=== PATIENT | female | born 1980 | race Caucasian/White ===

== ENCOUNTER → 2018-01-19 | Emergency (ER) | payer OTHER ==
[2018-01-19 11:47] VITALS: BMI 33.1
--- NOTE | 2018-01-19 14:05 | OBHP ---
Datetime: 01/19/2018 13:59 IP Adm Impression: , intrauterine IP Chief Complaint Other: back pain and dizziness IP Admit Plan: Observation/Evaluation; Discharge home Admit Comment, IP Provider: Patient is a @ 32.4 wks as per patient. Patient received all pre danna care in [facility]. Patient reports on/off dizziness and back pain. No dysuria, no fever, no vagi nal bleeding, no leaking, no other sick signs/symptoms, no contractions, +FM. Previous x 2, no m edical problems, previous Gallbladder surgery, no allergies, no medications taking except vi tamins. On exam, back pain relieved with massage - looks to be musculoskeletal. Pt reports no dizzine ss now, vitals normal. FHR = 150 Cat 1. Patient to go to clinic to sign up for care. Otherwise no sig ns of chorio or labor. Labor precautions given, discharged home Pelvic Type - PN: Adequate Extremities - PN: Normal Abdomen - PN: Normal Back - PN: Normal Breast - PN: Normal Lungs - PN: Normal Heart - PN: Normal Thyroid - PN: Normal Neurologic - PN: Normal HEENT - PN: Normal General - PN: Normal FHR - Baseline A Provider: 150 EGA AdmitDate IP: 32.4 Vital Signs Provider: Reviewed IP Chief Complaint: Other NICHD Accel Fetus A IP Provider: [id number] NICHD Decel Fetus A IP Provider: None Genitourinary Exam: Normal DTRs - PN: Normal
--- NOTE | 2018-01-19 14:08 | OBDCSUM ---
Datetime: 01/19/2018 13:01 Discharged to, Provider: Home Follow up at, Provider: SHER Prasad Instr Activity: Normal activity Disch Instr Diet: Regular Discharge Instructions, Provider: Routine instructions given Discharge Time: 01/19/2018 13:01 Follow up in weeks, Provider: rashmi kincaid today Disch Referrals: None Contraception discussed, Prov: Yes Discharge Diagnosis Prov Other: Back pain/dizziness
[2018-01-20 00:35] VITALS: BP 128/75; PULSE 79; RESP 17; TEMP 98.2; O2SAT 99
== END | disposition home or self-care (01) ==
LOC: H.EROB2 11:19
DX: O26.93 Pregnancy related conditions, unspecified, third trimester (principal); Z3A.32 32 weeks gestation of pregnancy; M54.9 Dorsalgia, unspecified; R42 Dizziness and giddiness

== ENCOUNTER 2018-03-27 14:47 | Emergency (ER) | payer OTHER ==
[2018-03-27 14:47] VITALS: BMI 33.1
[2018-03-27 14:55] VITALS: TEMP 98.2; O2SAT 100
[2018-03-27 17:34] LABS: SQUAMOUS EPITHIAL < 1 /hpf (0-5); URINE BACTERIA FEW (<OCC); URINE BILIRUBIN NEGATIVE (NEGATIVE); URINE BLOOD MODERATE (NEGATIVE); URINE CLARITY CLEAR (Clear); URINE COLOR STRAW (YELLOW); URINE GLUCOSE (UA) NEG (Normal); URINE LEUKOCYTE ESTERASE MOD Leu/uL (Negative); URINE PROTEIN NEGATIVE (NEGATIVE); URINE UROBILINOGEN 0.2-1.0 mg/dL (0.2-1.0)
--- NOTE | 2018-03-27 18:02 | ED PDOC ---
HPI: Allergic Reaction Time Seen by Provider: 03/27/18 15:40 Chief Complaint (Nursing): Abnormal Skin Integrity History Per: Patient History/Exam Limitations: no limitations Onset/Duration Of Symptoms: Days Current Symptoms Are (Timing): Still Present Possible Cause: Medication Associated Symptoms: Skin Rash Home/EMS Treatment: None, Benadryl Additional Complaint(s): Pt. is a 37 y/o Female who presents to ED with rash x 6 days, described as itchy diffuse red bumps. Pt. was diagnosed with UTI 9d. ago, started on bactrim , rash started on day 3 of bactrim. Pt. was seen again at clinic at was switched from bactrim to keflex 5 d. ago, pt. took 3d. of keflex without signinficant improvement of rash, last keflex dose 36 hrs. ago. Of note pt denies any worsening of rash over past 3 days, just not significantly improved. Pt. denies any associated dyspnea, wheezing, difficulty breathing or swallowing. Past Medical History Vital Signs: Last Vital Signs Temp 98.2 F 03/27/18 14:54 Pulse 94 H 03/27/18 14:54 Resp 20 03/27/18 14:54 BP 132/79 03/27/18 14:54 Pulse Ox 100 03/27/18 14:54 - Medical History PMH: HTN Denies: Depression, Diabetes - Surgical History Surgical History: Cholecystectomy - Home Medications Home Medications: Ambulatory Orders Medication Instructions Recorded Ferrous Sulfate 325 mg PO TID 30 Days #90 tablet NS 03/13/18 Ibuprofen [Motrin] 600 mg PO Q6 14 Days #48 tab NS 03/13/18 predniSONE [predniSONE Tab] 60 mg PO DAILY 3 Days #9 tab 03/27/18 - Allergies Allergies/Adverse Reactions: Allergies Allergy/AdvReac Type Severity Reaction Status Date / Time aspirin [From [facility]] Allergy SWELLING Verified 03/27/18 15:14 citric acid Allergy SWELLING Verified 03/27/18 15:14 [From [place]] diphenhydramine Allergy SWELLING Verified 03/27/18 15:14 [From Benadryl] sodium bicarbonate Allergy SWELLING Verified 03/27/18 15:14 [From [place]] Physical Exam - Reviewed Vital Signs Reviewed: Yes - Physical Exam Appears: Positive for: Well Skin: Positive for: Normal Color, Rash (diffuse erythematous papular rash, no facial or intraoral involvement) Cardiovascular/Chest: Positive for: Regular Rate, Rhythm Respiratory: Positive for: Normal Breath Sounds. Negative for: Wheezing, Respiratory Distress Neurologic/Psych: Positive for: Alert, Oriented - ECG O2 Sat by Pulse Oximetry: 100 - Progress ED Course And Treament: Reassessment, pt. well appearing, pulse ox: 100% on RA. Advised pt. abx. still needed based on UA, bactrim likely source of allergic reaction. She will continue keflex tomorrow in addition to benadryl and rx prednisone. 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 Disposition - Clinical Impression Clinical Impression: Allergic reaction caused by a drug - Disposition Disposition: Routine/Home Condition: GOOD Prescriptions: predniSONE [predniSONE Tab] 60 mg PO DAILY 3 Days #9 tab Instructions: Drug Allergy Forms: [employer] (Japanese), [facility] (Georgian)
[2018-03-27 18:38] VITALS: BP 120/79; PULSE 76; RESP 18
== END 2018-03-27 18:39 | disposition home or self-care (01) ==
LOC: H.ER 14:47
DX: T88.7XXA Unspecified adverse effect of drug or medicament, initial encounter (principal); I10 Essential (primary) hypertension